=== PATIENT | male | born 1940 | race American Indian/Alaskan Native ===

== ENCOUNTER 2016-08-06 15:07 | Outpatient (CLI) | payer MEDICARE ==
--- NOTE | 2016-08-06 16:20 | Cat Scan Report ---
CT CHEST WITHOUT CONTRAST INDICATION: Abnormal chest x-ray. Hyperthyroidism. COMPARISON: 08/23/2015 CXR. FINDINGS: Noncontrast chest CT demonstrates normal heart size. No pericardial or pleural effusions, though multifocal pleural thickening/plaques noted bilaterally, at places nodular while sessile at others, including some calcifications lateral to the left heart as on axial image 160, series 2, amongst others. Mild left coronary calcification. No aortic aneurysm, though assessment of the great vessels and for detecting subtle lymphadenopathy limited due to lack of IV contrast. Few mediastinal lymph nodes though noted, measuring 1 cm pretracheal, axial image 93 while approximately 1 x 2.2 cm at the AP window, axial image 91. Subtle hypodense lymphoid prominence also not excluded subcarinal and at the mitchell bilaterally, though not clearly visualized. No size significant axillary lymphadenopathy. Normal imaged thyroid, though slightly heterogeneous. Diffuse emphysematous changes noted throughout both lungs. Approximately 1 cm right lower lobe pneumatocele as well. Nonspecific distal esophageal wall prominence/thickening, not excluded for gastroesophageal reflux and/or hiatal hernia, amongst others. Multiple hepatic hypodensities, some subcentimeter and indeterminate while the largest as 1.4 cm anteriorly, axial image 222, series 2 represent biliary hamartomas/simple cysts. Multilevel spinal degenerative spurring, including mid to lower thoracic disc degeneration with narrowing and vacuum phenomenon. CONCLUSION: 1. Diffuse multifocal bilateral pleural thickening/plaques with minimal calcifications noted adjacent to the left heart, as described. With prior radiographs from July 2015 and May 2011 available at this institution indicative of chronic lung disease, these may represent old infectious/inflammatory process. A neoplastic etiology however difficult to entirely exclude based on this noncontrast exam alone. Direct comparison with prior CT would be very helpful in this regard, if available. 2. Few other findings, as above. Thank you for the opportunity to participate in this patient's care.
--- NOTE | 2016-08-07 08:00 | Magnetic Resonance Report ---
MRI OF THE BRAIN WITHOUT CONTRAST: HISTORY: Abnormal chest x-ray, primary hyperthyroidism PROCEDURE: Multiplanar, multisequence MR imaging of the brain without IV contrast was performed. FINDINGS: Mild cortical volume loss and mild chronic white matter changes are identified which appear appropriate for this persons age. Otherwise, the brain parenchyma signal intensity and its langford white interface are within normal limits on all sequences. No evidence for acute ischemia, hemorrhage or mass. No chronic infarct or extra-axial fluid collection. The midline structures are central. The basal cisterns are patent. Normal ventricular size. The orbital cavities and sella turcica demonstrate no abnormality. The visualized paranasal sinuses and mastoid air cells are well aerated. IMPRESSION: Unremarkable non-enhanced MRI of the brain.
== END 2016-08-06 15:08 | disposition home or self-care (01) ==
LOC: CT 15:07
PROVIDERS: ATTEND Internal Medicine
DX: E21.0 Primary hyperparathyroidism (principal); R91.8 Other nonspecific abnormal finding of lung field; R93.8 Abnormal findings on diagnostic imaging of other specified body structures; I51.5 Myocardial degeneration; I25.10 Atherosclerotic heart disease of native coronary artery without angina pectoris; J98.4 Other disorders of lung; M51.34 Other intervertebral disc degeneration, thoracic region
CPT/HCPCS: 70551; 71250

== ENCOUNTER 2016-10-04 11:32 | Outpatient (CLI) | payer MEDICARE | END 2016-10-04 11:33 | disposition home or self-care (01) | LOC: LABHHL 11:32 | PROVIDERS: ATTEND Internal Medicine | DX: E03.8 Other specified hypothyroidism (principal); R73.9 Hyperglycemia, unspecified | CPT/HCPCS: 36415; 83036 ==

== ENCOUNTER 2016-12-28 09:33 | Outpatient (CLI) | payer MEDICARE ==
--- NOTE | 2016-12-28 10:58 | Cat Scan Report ---
CT scan of chest without IV contrast: Compared to 08/06/16. History: 277.9/exposure. Findings: No endobronchial or mediastinal mass. No significant mediastinal, hilar or axillary adenopathy. No pleural effusion or pericardial effusion. Calcification noted adjacent to left heart. No interval change. Scattered areas of pleural thickening/plaques bilaterally. No significant interval change. No acute lung findings. Centrilobular emphysema. Hepatic hypodensities without interval change. Bony degenerative changes without interval change. Impression: Emphysema bilaterally with bilateral scattered pleural thickening/plaques without interval change. No acute lung findings.
== END 2016-12-28 09:34 | disposition home or self-care (01) ==
LOC: CT 09:33
PROVIDERS: ATTEND Internal Medicine Pulmonary Disease
DX: J43.2 Centrilobular emphysema (principal); J92.9 Pleural plaque without asbestos; Z77.9 Other contact with and (suspected) exposures hazardous to health
CPT/HCPCS: 71250

== ENCOUNTER 2017-11-28 08:29 | Outpatient (CLI) | payer MEDICARE ==
--- NOTE | 2017-11-28 11:17 | Ultrasound Report ---
ULTRASOUND THYROID SCAN History: Abnormal results of thyroid function studies. Findings: The thyroid gland is mildly enlarged and demonstrates a heterogeneous echotexture. The right thyroid lobe measures 6.1 x 2.4 x 1.9 cm. A 1.3 cm nodule is identified in the midpole. The left thyroid lobe measures 5.4 x 3.2 x 1.8 cm. A 1.7 cm nodule is noted near midpole. A 2.5 cm nodule is noted near the inferior pole. All nodules have a similar appearance. No obvious internal cystic change or calcifications. No cervical adenopathy is identified. Impression: Mild thyromegaly and thyroid nodules as described. This probably represents a multinodular goiter. Surveillance is recommended.
== END 2017-11-28 08:30 | disposition home or self-care (01) ==
LOC: US 08:29
PROVIDERS: ATTEND Nurse Practitioner
DX: E04.1 Nontoxic single thyroid nodule (principal)
CPT/HCPCS: 76536